=== PATIENT | female | born 1935 | race Caucasian/White ===

== ENCOUNTER 2020-12-14 14:34 | Outpatient (CLI) | payer MEDICARE, BC | END 2020-12-14 14:35 | disposition home or self-care (01) | LOC: BICRAD 14:34 | PROVIDERS: ATTEND Podiatrist | DX: M79.89 Other specified soft tissue disorders (principal); M10.9 Gout, unspecified; M19.072 Primary osteoarthritis, left ankle and foot | CPT/HCPCS: 36415; 80053; 84550 ==

== ENCOUNTER 2024-01-07 12:07 | Inpatient (IN) | payer BC, MEDICARE ==
[2024-01-07 14:02] LABS: #Basophils Less than 0.03 10x3/uL (0.0-0.2); %Basophils 0.1 % (0.0-1.0); %Eosinophils 0.3 % (0.0-10.0); %Lymphocytes 3.2 % (21.0-51.0); %Monocytes 3.6 % (0.0-10.0); %Neutrophils 92.4 % (42.0-75.0); Hematocrit 39.5 % (36.0-47.0); Hemoglobin 12.5 g/dL (12.0-16.0); Mean Corpuscular HGB CONC 31.6 g/dL (32.0-36.0); Mean Corpuscular Hemoglobin 30.5 pg (27.0-31.0); Mean Corpuscular Volume 96.3 fL (78.0-98.0); Mean Platelet Volume 10.1 fL (7.4-10.4); Platelet Count 132 10x3/uL (130-400); RBC Distribution Width 14.3 % (11.5-14.5)
[2024-01-07 14:15] LABS: INR-International Normal Ratio 1.2; Prothrombin Time 15.7 sec (12.0-14.7)
[2024-01-07 14:16] LABS: PTT 30.8 sec (22.9-36.1)
[2024-01-07 14:24] LABS: ALT (SGPT) 8 U/L (8-55); AST (SGOT) 16 U/L (5-34); Albumin 3.4 g/dL (3.4-4.8); Alkaline Phosphatase 74 U/L (40-110); Anion Gap 11 mmol/L (10-20); BUN (Urea Nitrogen) 24 mg/dL (9.8-20.1); Bilirubin, Total 0.6 mg/dL (0.2-1.2); CK (CPK) 103 U/L (29-168); Calc. Creatinine Clearance 0 mL/min (70-130); Calcium 8.4 mg/dL (7.8-10.44); Carbon Dioxide 20 mmol/L (23-31); Chloride 111 mmol/L (98-107); Estimated GFR 55; Globulin 2.6 g/dL (2.4-3.5); Glucose 138 mg/dL (83-110); Potassium 5.2 mmol/L (3.5-5.1); Sodium 137 mmol/L (136-145)
[2024-01-07 14:28] LABS: Troponin I 0.153 ng/mL (< 0.028)
[2024-01-07] MEDS ORDERED: Metoprolol Tartrate 5 MG (5 mL) VIAL ONE (14:44)
[2024-01-07] MEDS ORDERED: Iopamidol-370 76% 500 ML MDV (1 ML CHARGE) ONE (15:12)
[2024-01-07] MEDS ORDERED: Insulin Regular, Human 100 UNIT/ML 10 ML VIAL SC PRN (15:29)
[2024-01-07] MEDS ORDERED: Dextrose 5% in Water 1,000 ML IV PRN (15:29)
[2024-01-07] MEDS ORDERED: hydrALAZINE 20 MG/ML VIAL SLOW IVP PRN (15:29)
[2024-01-07] MEDS ORDERED: Acetaminophen 650 MG Suppository PR PRN (15:29)
[2024-01-07] MEDS ORDERED: Dextrose 50% Abboject 50 ML SYRINGE SLOW IVP PRN (15:29)
[2024-01-07] MEDS ORDERED: Glucagon 1 MG/ML KIT IM PRN (15:29)
[2024-01-07 18:46] VITALS: BMI 26.8
[2024-01-07] MEDS: Sodium Chloride 0.9% 500 ML IV SCH (20:54)
[2024-01-07] MEDS: Aspirin 300 MG Suppository PR SCH (20:54)
[2024-01-07 21:17] LABS: Troponin I 0.524 ng/mL (< 0.028)
[2024-01-07] MEDS: Famotidine/PF 20 mg/2ml Vial SLOW IVP SCH (21:24)
[2024-01-07] MEDS: cefTRIAXone\\ROCEPHIN 1 GM in Sodium Chloride 0.9% 100 ML IVPB SCH (21:41)
[2024-01-07] MEDS: Melatonin 3 MG TAB PO SCH (22:19)
[2024-01-08 03:49] LABS: #Basophils Less than 0.03 10x3/uL (0.0-0.2); %Basophils 0.3 % (0.0-1.0); %Eosinophils 1.4 % (0.0-10.0); %Lymphocytes 14.5 % (21.0-51.0); %Monocytes 9.8 % (0.0-10.0); %Neutrophils 73.6 % (42.0-75.0); Hematocrit 39.1 % (36.0-47.0); Hemoglobin 12.5 g/dL (12.0-16.0); Mean Corpuscular Hemoglobin 30.9 pg (27.0-31.0); Mean Corpuscular Volume 96.5 fL (78.0-98.0); Mean Platelet Volume 10.4 fL (7.4-10.4); Platelet Count 160 10x3/uL (130-400); RBC Distribution Width 14.4 % (11.5-14.5); Red Blood Cell (RBC) Count 4.05 mill/uL (4.20-5.40)
[2024-01-08 04:05] LABS: ALT (SGPT) 14 U/L (8-55); AST (SGOT) 19 U/L (5-34); Albumin 3.3 g/dL (3.4-4.8); Alkaline Phosphatase 75 U/L (40-110); Anion Gap 11 mmol/L (10-20); BUN (Urea Nitrogen) 26 mg/dL (9.8-20.1); Bilirubin, Total 0.6 mg/dL (0.2-1.2); Calc. Creatinine Clearance 35 mL/min (70-130); Calcium 8.7 mg/dL (7.8-10.44); Carbon Dioxide 22 mmol/L (23-31); Cardiac Risk 3.8 (Less than 4.5); Chloride 106 mmol/L (98-107); Cholesterol 149 mg/dl (< 200 Desired); Estimated GFR 38; Globulin 2.7 g/dL (2.4-3.5); Glucose 141 mg/dL (83-110); HDL Cholesterol 39 mg/dL (>60 Neg Risk); LDL Cholesterol, Calculated 71 mg/dL; Potassium 4.3 mmol/L (3.5-5.1); Sodium 135 mmol/L (136-145); Triglycerides 194 mg/dL (Less than 150)
[2024-01-08 04:13] LABS: Troponin I 0.547 ng/mL (< 0.028)
[2024-01-08 04:21] LABS: Hemoglobin A1c 6.1 % (4.0-6.0)
[2024-01-08] MEDS: Aspirin 81 mg Enteric Coated Tablet PO SCH (10:14)
[2024-01-08] MEDS: Enoxaparin 30 MG (0.3 mL) SYRINGE SC SCH (10:20)
[2024-01-08] MEDS: Enoxaparin 40 MG (0.4 mL) SYRINGE SC SCH (10:24)
[2024-01-08] MEDS: Atorvastatin Calcium 40 MG TAB PO SCH (21:00)
[2024-01-08] MEDS: Acetaminophen 325 MG TAB PO PRN (21:25)
[2024-01-09 03:52] LABS: Hematocrit 37.6 % (36.0-47.0); Hemoglobin 12.3 g/dL (12.0-16.0); Mean Corpuscular HGB CONC 32.7 g/dL (32.0-36.0); Mean Corpuscular Hemoglobin 30.5 pg (27.0-31.0); Mean Corpuscular Volume 93.3 fL (78.0-98.0); Mean Platelet Volume 10.3 fL (7.4-10.4); Platelet Count 150 10x3/uL (130-400); RBC Distribution Width 14.3 % (11.5-14.5); Red Blood Cell (RBC) Count 4.03 mill/uL (4.20-5.40)
[2024-01-09 04:08] LABS: Anion Gap 13 mmol/L (10-20); BUN (Urea Nitrogen) 24 mg/dL (9.8-20.1); Calc. Creatinine Clearance 36 mL/min (70-130); Calcium 8.5 mg/dL (7.8-10.44); Carbon Dioxide 20 mmol/L (23-31); Chloride 108 mmol/L (98-107); Estimated GFR 39; Glucose 115 mg/dL (83-110); Potassium 4.5 mmol/L (3.5-5.1); Sodium 136 mmol/L (136-145)
[2024-01-09] MEDS: Levothyroxine Sodium 50 MCG TAB PO SCH (06:11)
[2024-01-09] MEDS: cefTRIAXone\\ROCEPHIN 1 GM in Sodium Chloride 0.9% 100 ML IVPB SCH (17:44)
[2024-01-10 05:55] LABS: Anion Gap 12 mmol/L (10-20); BUN (Urea Nitrogen) 25 mg/dL (9.8-20.1); Calc. Creatinine Clearance 34 mL/min (70-130); Calcium 8.6 mg/dL (7.8-10.44); Carbon Dioxide 22 mmol/L (23-31); Chloride 108 mmol/L (98-107); Estimated GFR 37; Glucose 130 mg/dL (83-110); Potassium 4.4 mmol/L (3.5-5.1); Sodium 138 mmol/L (136-145)
[2024-01-10] MEDS: Lisinopril 20 MG TAB PO SCH (09:32)
[2024-01-10] MEDS: QUEtiapine 25 MG TAB PO SCH (19:32)
[2024-01-11] MEDS ORDERED: Docusate 100 MG CAP PO PRN (10:02)
[2024-01-11] MEDS ORDERED: Polyethylene Glycol 3350 17 GM Packet PO PRN (10:02)
[2024-01-11] MEDS: Amlodipine 5 MG TAB PO SCH (12:35)
[2024-01-11] MEDS: Docusate 100 MG CAP PO SCH (12:35)
[2024-01-11] MEDS: Polyethylene Glycol 3350 17 GM Packet PO SCH (12:35)
[2024-01-11] MEDS: QUEtiapine 25 MG TAB PO SCH (18:11)
[2024-01-12] MEDS: Amlodipine 5 MG TAB PO SCH (09:16)
[2024-01-12] MEDS: Docusate 100 MG CAP PO PRN (09:23)
[2024-01-12] MEDS: Bisacodyl 10 MG SUPP PR SCH (10:31)
[2024-01-12] MEDS: Polyethylene Glycol 3350 17 GM Packet PO PRN (20:18)
[2024-01-12] MEDS: Melatonin 3 MG TAB PO PRN (20:18)
[2024-01-13 04:28] LABS: Hematocrit 40.6 % (36.0-47.0); Hemoglobin 13.1 g/dL (12.0-16.0); Mean Corpuscular HGB CONC 32.3 g/dL (32.0-36.0); Mean Corpuscular Hemoglobin 30.3 pg (27.0-31.0); Mean Platelet Volume 10.3 fL (7.4-10.4); Platelet Count 201 10x3/uL (130-400); RBC Distribution Width 14.3 % (11.5-14.5); Red Blood Cell (RBC) Count 4.32 mill/uL (4.20-5.40)
[2024-01-13 04:48] LABS: Anion Gap 15 mmol/L (10-20); BUN (Urea Nitrogen) 27 mg/dL (9.8-20.1); Calc. Creatinine Clearance 42 mL/min (70-130); Calcium 8.7 mg/dL (7.8-10.44); Carbon Dioxide 22 mmol/L (23-31); Chloride 107 mmol/L (98-107); Estimated GFR 47; Glucose 122 mg/dL (83-110); Potassium 4.5 mmol/L (3.5-5.1); Sodium 139 mmol/L (136-145)
[2024-01-13] MEDS: Famotidine 20 MG TAB PO SCH (20:51)
[2024-01-14] MEDS: Amlodipine 5 MG TAB PO SCH (08:08)
[2024-01-14 14:18] VITALS: BMI 26.8
[2024-01-15] MEDS: Famotidine 20 MG TAB PO SCH (09:37)
[2024-01-15] MEDS: Apixaban 2.5 MG TAB PO SCH (09:37)
[2024-01-15 16:01] VITALS: TEMP 98
[2024-01-15] MEDS: Diazepam 2 MG TAB PO SCH (19:31)
[2024-01-15 19:33] VITALS: BP 131/76
== END 2024-01-15 21:45 | DRG 64 ==
LOC: ERS 12:07 → 2SE 15:05
PROVIDERS: ADMIT Hospitalist; ATTEND Internal Medicine
DX: I63.9 Cerebral infarction, unspecified (principal); I21.A1 Myocardial infarction type 2; G81.94 Hemiplegia, unspecified affecting left nondominant side; I13.0 Hypertensive heart and chronic kidney disease with heart failure and stage 1 through stage 4 chronic kidney disease, or unspecified chronic kidney disease; I50.22 Chronic systolic (congestive) heart failure; F05 Delirium due to known physiological condition; N39.0 Urinary tract infection, site not specified; I48.0 Paroxysmal atrial fibrillation; K59.00 Constipation, unspecified; E03.9 Hypothyroidism, unspecified; F03.90 Unspecified dementia, unspecified severity, without behavioral disturbance, psychotic disturbance, mood disturbance, and anxiety; N18.30 Chronic kidney disease, stage 3 unspecified; Z66 Do not resuscitate; E78.5 Hyperlipidemia, unspecified; E11.22 Type 2 diabetes mellitus with diabetic chronic kidney disease; Z95.1 Presence of aortocoronary bypass graft; Z96.641 Presence of right artificial hip joint; R29.715 NIHSS score 15; Z79.899 Other long term (current) drug therapy; Z79.01 Long term (current) use of anticoagulants; Z79.890 Hormone replacement therapy; Z79.82 Long term (current) use of aspirin; W19.XXXA Unspecified fall, initial encounter; Y93.89 Activity, other specified; Y92.89 Other specified places as the place of occurrence of the external cause
CPT/HCPCS: 0042T; 36415; 36416; 70450; 70486; 70496; 70498; 70551; 71045; 72125; 74018; 80048; 80053; 80061; 82550; 83036; 83605; 83880; 84443; 84484; 85025; 85027; 85610; 85730; 86850; 86900; 86901; 87040; 93005; 93306; 96374; G0390; J0696; J1650; J3490; Q9967